=== PATIENT | male | born 1980 | race Caucasian/White ===

== ENCOUNTER 2018-05-20 09:40 | Emergency (ER) | payer SELFPAY ==
[~2018-05-20] VITALS: Ht 177.8 cm; Wt 181.4 kg
[2018-05-20 09:40] VITALS: BP_SYST 211
[2018-05-20] MEDS ORDERED: cloNIDine HCL 0.1 MG TABLET PO ONE (10:15)
[2018-05-20 10:30] LABS: CALCIUM 8.5 mg/dL (8.4-11.0); CREATININE 0.66 mg/dL (0.55-1.30); POTASSIUM 3.7 mmol/L (3.5-5.1)
[2018-05-20 10:33] LABS: RED BLOOD CELL COUNT(AUTO) 5.41 MIL/uL (4.2-6.2); WHITE BLOOD COUNT (AUTO) 7.5 K/uL (4.8-10.8)
[2018-05-20 10:34] LABS: BASOPHILS # (AUTO) 0.1 K/uL (0.0-0.2); BASOPHILS % (AUTO) 0.9 % (0.0-2.0); EOSINOPHILS # (AUTO) 0.2 K/uL (0.0-0.4); EOSINOPHILS % (AUTO) 2.1 % (0.0-4.0); HEMOGLOBIN 15.8 g/dL (14.0-18.0); LYMPHOCYTES # (AUTO) 1.6 K/uL (1.0-5.5); LYMPHOCYTES % (AUTO) 21.8 % (20.5-51.5); MEAN CORPUSCULAR HEMOGLOBIN 29 pg (27-31); MEAN CORPUSCULAR HGB CONC 34 % (32-36); MEAN CORPUSCULAR VOLUME 85 fL (79.0-98.0); MONOCYTES # (AUTO) 0.5 K/uL (0.0-1.0); MONOCYTES % (AUTO) 6.4 % (1.7-9.3); NEUTROPHILS # (AUTO) 5.2 K/uL (1.8-7.7); NEUTROPHILS % (AUTO) 68.8 % (40.0-70.0); PLATELET COUNT (AUTO) 270 K/uL (130-430); RED CELL DISTRIBUTION WIDTH 13.5 % (9.0-15.0)
[2018-05-20 10:35] LABS: ALBUMIN 3.5 g/dL (3.4-4.8); TOTAL BILIRUBIN 0.9 mg/dL (0.0-1.0)
[2018-05-20 10:43] LABS: BILIRUBIN,URINE 1+ (NEGATIVE); CLARITY/URINE CLEAR (CLEAR); COLOR,URINE YELLOW (YELLOW); GLUCOSE,URINE 3+ (NEGATIVE); KETONES,URINE TRACE (NEGATIVE); LEUKOCYTE ESTERASE ,URINE TRACE (NEGATIVE); NITRITE, URINE NEGATIVE (NEGATIVE); PH,URINE 5.5 (5.0-8.0); PROTEIN URINE TRACE (NEGATIVE)
[2018-05-20 10:46] LABS: BLOOD, URINE TRACE (NEGATIVE)
[2018-05-20 10:57] LABS: BACTERIA,URINE FEW /HPF (None Seen); RBC,URINE 0-3 /HPF (0-3)
[2018-05-20 10:58] LABS: MUCUS,URINE 1+ /LPF (None Seen)
[2018-05-20 11:24] VITALS: BP_SYST 160
[2018-05-22 22:46] LABS: CHLAMYDIA TRACHOMATIS NAA Negative (Negative); NEISSERIA GONORRHOEAE NAA Negative (Negative)
== END 2018-05-20 11:24 | disposition home or self-care (01) ==
LOC: SED 09:40
DX: N48.1 Balanitis (principal); E11.9 Type 2 diabetes mellitus without complications; I10 Essential (primary) hypertension; E66.01 Morbid (severe) obesity due to excess calories; Z68.43 Body mass index [BMI] 50.0-59.9, adult
CPT/HCPCS: 36415; 80053; 81000-TC; 82962; 83036; 85025; 87086; 87491; 87591; 99283